=== PATIENT | male | born 1960 | race Caucasian/White ===

== ENCOUNTER 2023-07-28 07:57 | Day surgery (SDC) | payer BC ==
[2023-07-27 15:21] LABS: BASOPHILS # (AUTO) 0.1 X10'3 (0-0.2); BASOPHILS % (AUTO) 0.6 % (0-1); EOSINOPHILS # (AUTO) 0.3 X10'3 (0-0.9); EOSINOPHILS % (AUTO) 3.5 % (0-6); HEMATOCRIT 49.3 % (42.0-52.0); HEMOGLOBIN 16.9 g/dl (14.0-17.9); LYMPHOCYTES # (AUTO) 2.1 X10'3 (1.1-4.8); LYMPHOCYTES % (AUTO) 22.4 % (21-51); MEAN CORPUSCULAR HEMOGLOBIN 31.9 PG (27.0-31.0); MEAN CORPUSCULAR HGB CONC 34.3 g/dL (33.0-36.5); MEAN CORPUSCULAR VOLUME 92.9 FL (78-98); MEAN PLATELET VOLUME 6.9 FL (7.4-10.4); MONOCYTES # (AUTO) 0.7 X10'3 (0-0.9); NEUTROPHILS # (AUTO) 6.3 X10'3 (1.8-7.7); NEUTROPHILS % (AUTO) 66.5 % (42-75); PLATELET COUNT 198 X10'3 (140-440); RED BLOOD COUNT 5.31 X10'6 (4.70-6.10); RED CELL DISTRIBUTION WIDTH 14.3 % (11.5-14.5); WHITE BLOOD COUNT 9.4 X10'3 (4.5-11.0)
[2023-07-27 15:35] LABS: ALBUMIN 4.4 G/DL (3.4-5.0); ANION GAP 9 (8-16); BLOOD UREA NITROGEN 17 MG/DL (7-18); BUN/CREATININE RATIO 20.5 (10.0-20.0); CHLORIDE 105 MMOL/L (99-107); CREATININE 0.83 MG/DL (0.60-1.10); GLUCOSE 156 MG/DL (70-104); POTASSIUM 4.2 MMOL/L (3.5-5.1); SODIUM 142 MMOL/L (135-145); TOTAL CARBON DIOXIDE 27.8 MMOL/L (24-32); eGFR > 90 ML/MIN
[2023-07-27 15:51] LABS: APTT 24 SECONDS (22-32); PROTHROMBIN TIME 10.9 SECONDS (9.0-12.0)
[~2023-07-28] VITALS: Ht 165.1 cm; Wt 66.9 kg
[2023-07-28] VITALS (13 sets, daily range): BP systolic 89–147; BP diastolic 51–86; PULSE 63–83; RESP 12–18; TEMP 97.7; O2SAT 93–96
[2023-07-28] MEDS ORDERED: ASPI-1265 PO (08:26)
[2023-07-28] MEDS ORDERED: METF-438 PO (08:26)
[2023-07-28] MEDS ORDERED: EMPA25TA PO (08:26)
[2023-07-28] MEDS ORDERED: NITR0.4T51 SL (08:26)
[2023-07-28] MEDS ORDERED: ROSU20TA73 PO (08:26)
[2023-07-28] MEDS ORDERED: DULA0.75 SQ (08:26)
[2023-07-28] MEDS ORDERED: METO25TA6 PO (08:26)
[2023-07-28] MEDS: diphenhydrAMINE 25mg capsule PO PRN (09:03)
[2023-07-28] MEDS: normal saline 1,000 ML IV SCH (09:03)
[2023-07-28] MEDS: LORazepam 0.5 MG tablet PO PRN (09:03)
[2023-07-28] MEDS ORDERED: LIDOcaine 1% (10mg/ml) 2ml vial ONE (11:08)
[2023-07-28] MEDS ORDERED: midazolam 1 mg/ML 2ml injection ONE (11:08)
[2023-07-28] MEDS ORDERED: iohexol 350 MG/ML 50ML vial IV ONE (11:08)
[2023-07-28] MEDS ORDERED: fentaNYL/PF 50MCG/1 ML 2ML syringe ONE (11:08)
[2023-07-28] MEDS ORDERED: LIDOcaine 1% 30ml preserv. free vial ONE (11:08)
[2023-07-28] MEDS ORDERED: verapamil 2.5 mg/ml inj IV ONE (11:08)
[2023-07-28] MEDS ORDERED: heparin 1,000unit/ml 10ml vial 10 ML ONE (11:08)
[2023-07-28] MEDS ORDERED: iohexol 350MG/ML 100ml bottle IV ONE (11:09)
[2023-07-28] MEDS ORDERED: nitroGLYCERIN 500mcg/5mL D5W 5 ML IV ONE (11:14)
[2023-07-28] MEDS: normal saline 1000ml 1,000 ML IV ONE (15:34)
== END 2023-07-28 18:50 | disposition home or self-care (01) ==
LOC: SSTAY O 07:57
PROVIDERS: ATTEND Internal Medicine Cardiovascular Disease
DX: R94.39 Abnormal result of other cardiovascular function study (principal); I25.10 Atherosclerotic heart disease of native coronary artery without angina pectoris; I10 Essential (primary) hypertension; E11.9 Type 2 diabetes mellitus without complications; E78.5 Hyperlipidemia, unspecified; I25.2 Old myocardial infarction; Z79.84 Long term (current) use of oral hypoglycemic drugs; Z79.82 Long term (current) use of aspirin; Z79.899 Other long term (current) drug therapy; Z90.49 Acquired absence of other specified parts of digestive tract; Z95.1 Presence of aortocoronary bypass graft; Z95.5 Presence of coronary angioplasty implant and graft; Z98.890 Other specified postprocedural states; Z82.49 Family history of ischemic heart disease and other diseases of the circulatory system
CPT/HCPCS: 36415; 80048; 82948; 85025; 85610; 85730; 93005; 93459; 99152; 99153; J1644; J2250; J3010; J3490; J7030; Q0163; Q9967; 76937; 96360; A4615; A6258; C1725; C1751; C1760; C1894